=== PATIENT | male | born 1975 | race Caucasian/White ===

== ENCOUNTER 2019-02-01 08:03 | Emergency (ER) | payer BC ==
[2019-02-01] MEDS ORDERED: Albuterol/Ipratropium 3.0-0.5 MG/3 ML Neb Soln NEB ONE (08:15)
[2019-02-01] MEDS ORDERED: predniSONE 20 MG Tab PO ONE (08:22)
--- NOTE | 2019-02-01 08:22 | EDM.PDOC ---
ED HPI GENERAL MEDICAL PROBLEM - General Chief Complaint: Respiratory Problem Stated Complaint: ASTHMA ATTACK Time Seen by Provider: 02/01/19 08:09 - History of Present Illness INITIAL COMMENTS - FREE TEXT/NARRATIVE: HISTORY AND PHYSICAL: History of present illness: The patient is a 43-year-old male with a known history of asthma and uses an inhaler as needed and says he has never taken prednisone for an acute attack nor has he been admitted to the hospital for asthma and presents with complaints of asthma symptoms that seems to have worsened at 6 PM last evening. The patient says he lives in [place] but works here locally and when he is here he seems to use his inhaler more often but only as needed and no regular basis. He says that at 6:00 last night he was leaving work and he felt more short of breath but he did not have his inhaler. He says that he ran out a few weeks ago. He tells me that if he had his inhaler he probably would not be here in the ED but as he did not have his rescue inhaler and had no way of getting one he is now here with complaints of wheezing and tightness with shortness of breath. He denies any fevers chills chest pain abdominal issues sore throat and says that he is coughing but is a dry cough and nonproductive. He is not concerned about any infectious process. He does not have a spacer to use at home. Review of systems: As per history of present illness and below otherwise all systems reviewed and negative. Past medical history: As per history of present illness and as reviewed below otherwise noncontributory. Surgical history: As per history of present illness and as reviewed below otherwise noncontributory. Social history: No reported history of drug or alcohol abuse. Family history: As per history of present illness and as reviewed below otherwise noncontributory. Physical exam: General: Well-developed well-nourished man who is nontoxic and vital signs were noted by me. He is speaking clearly in the ED and he is currently on a DuoNeb on my arrival into the room as this was started by nursing prior to my arrival. HEENT: Atraumatic, normocephalic, negative for conjunctival pallor or scleral icterus, mucous membranes moist, throat clear, neck supple, nontender, trachea midline. Lungs: Clear to auscultation with some fine expiratory wheeze at the right base but no worker breathing or stridor, breath sounds equal bilaterally, chest nontender. Heart: S1S2, regular rhythm and sensory tachycardic rate on my evaluation but the patient is on a DuoNeb, no overt murmurs Abdomen: Soft, nondistended, nontender. NABS Pelvis: Deferred Genitourinary: Deferred. Rectal: Deferred. Extremities: Atraumatic, full range of motion Neurovascular unremarkable. Neuro: Awake, alert, oriented. Cranial nerves II through XII unremarkable. Cerebellum unremarkable. Motor and sensory unremarkable throughout. Exam nonfocal. Diagnostics: None Therapeutics: DuoNeb prednisone spacer and teaching After the duo neb the patient says he feels significantly improved and is comfortable with discharge home. He is asking for a refill on his inhaler and I' ve also discussed with him the need for a burst of prednisone Impression: Acute asthma attack Definitive disposition and diagnosis as appropriate pending reevaluation and review of above. Back Pain Score (Numeric/FACES): 1 - Related Data Allergies Allergy/AdvReac Type Severity Reaction Status Date / Time No Known Allergies Allergy Verified 02/01/19 08:07 Home Meds: Home Meds Albuterol Sulfate [Albuterol Sulfate Hfa] 8.5 gm IH ASDIRECTED PRN 02/01/19 [ History] Past Medical History Respiratory History: Reports: Asthma - Infectious Disease History Infectious Disease History: Reports: Chicken Pox - Past Surgical History Other Musculoskeletal Surgeries/Procedures:: ACL repair x2 Social & Family History - Tobacco Use Smoking Status *Q: Never Smoker Second Hand Smoke Exposure: No - Caffeine Use Caffeine Use: Reports: None - Recreational Drug Use Recreational Drug Use: Yes Drug Use in Last 12 Months: No ED ROS GENERAL - Review of Systems Review Of Systems: ROS reveals no pertinent complaints other than HPI. ED EXAM, GENERAL - Physical Exam Exam: See Below (see dictation) Course - Vital Signs Last Recorded V/S: Last Vital Signs Temp 36.1 C 02/01/19 08:05 Pulse 111 H 02/01/19 08:05 Resp 18 02/01/19 08:05 BP 142/87 H 02/01/19 08:05 Pulse Ox 92 L 02/01/19 08:05 - Orders/Labs/Meds Orders: Active Orders 24 hr Category Date Time Status Communication Order [RC] STAT Care 02/01/19 08:15 Ordered RT Aerosol Therapy [RC] ASDIRECTED Care 02/01/19 08:15 Ordered Meds: Medications Discontinued Medications Generic Name Dose Route Start Last Admin Trade Name Satr PRN Reason Stop Dose Admin Albuterol/Ipratropium 3 ml 02/01/19 08:15 Duoneb 3.0-0.5 Mg/3 Ml NEB 02/01/19 08:16 ONETIME ONE Departure - Departure Time of Disposition: 08:20 Disposition: Home, Self-Care 01 Condition: Good Clinical Impression: Acute asthma - Discharge Information Additional Instructions: The following information is given to patients seen in the emergency department who are being discharged to home. This information is to outline your options for follow-up care. We provide all patients seen in our emergency department with a follow-up referral. The need for follow-up, as well as the timing and circumstances, are variable depending upon the specifics of your emergency department visit. If you don't have a primary care physician on staff, we will provide you with a referral. We always advise you to contact your personal physician following an emergency department visit to inform them of the circumstance of the visit and for follow-up with them and/or the need for any referrals to a consulting specialist. The emergency department will also refer you to a specialist when appropriate. This referral assures that you have the opportunity for followup care with a specialist. All of these measure are taken in an effort to provide you with optimal care, which includes your followup. Under all circumstances we always encourage you to contact your private physician who remains a resource for coordinating your care. When calling for followup care, please make the office aware that this follow-up is from your recent emergency room visit. If for any reason you are refused follow-up, please contact the [facility] emergency department at and ask to speak to the emergency department charge nurse. [facility] Primary [facility]- Internal Medicine and Family [address] [address] Push hydration as we discussed and use your inhaler with the spacer you have been given 1-2 puffs every 6 hours for the next 24 hours and then every 6 hours as needed. It is important to do it around the clock for the first 24 hours to break the attack. Please take prednisone as prescribed. Call and follow-up with your provider back at home or one of our clinic providers for further care and evaluation and return to ER as needed and as discussed - My Orders Last 24 Hours: My Active Orders 02/01/19 08:15 Communication Order [RC] STAT RT Aerosol Therapy [RC] ASDIRECTED - Assessment/Plan Last 24 Hours: My Active Orders 02/01/19 08:15 Communication Order [RC] STAT RT Aerosol Therapy [RC] ASDIRECTED
== END 2019-02-01 08:35 | disposition home or self-care (01) ==
LOC: MW.ED 08:03
DX: J45.901 Unspecified asthma with (acute) exacerbation (principal); Z79.51 Long term (current) use of inhaled steroids
CPT/HCPCS: 99284; A9270; 99283; J7620-GY

== ENCOUNTER 2021-10-02 06:47 | Emergency (ER) | payer SELFPAY ==
[2021-10-02] MEDS ORDERED: Dicyclomine 10 MG Cap PO ONE (07:37)
[2021-10-02 08:33] LABS: BLOOD UREA NITROGEN,BUN 20 mg/dL (7.0-18.0); CARBON DIOXIDE,CO2 24.2 mmol/L (21.0-32.0); CHLORIDE,CL 99 mmol/L (98-107); GLUCOSE RANDOM 109 mg/dL (74-106); POTASSIUM,K 3.6 mmol/L (3.5-5.1); SODIUM,NA 137 mmol/L (136-148)
== END 2021-10-02 09:05 | disposition home or self-care (01) ==
LOC: MW.ED 06:47
DX: K52.9 Noninfective gastroenteritis and colitis, unspecified (principal)
CPT/HCPCS: 36415; 80053; 85025; 99284; A9270; 99283

== ENCOUNTER 2021-10-05 02:47 | Emergency (ER) | payer SELFPAY ==
[2021-10-05] MEDS ORDERED: Ketorolac 30 MG/ML SDV IM ONE (03:43)
[2021-10-05 03:48] LABS: BLOOD UREA NITROGEN,BUN 16 mg/dL (7.0-18.0); CARBON DIOXIDE,CO2 21.8 mmol/L (21.0-32.0); CHLORIDE,CL 103 mmol/L (98-107); GLUCOSE RANDOM 114 mg/dL (74-106); POTASSIUM,K 3.6 mmol/L (3.5-5.1); SODIUM,NA 137 mmol/L (136-148)
== END 2021-10-05 05:53 | disposition home or self-care (01) ==
LOC: MW.ED 02:47
DX: N23 Unspecified renal colic (principal); J45.909 Unspecified asthma, uncomplicated
CPT/HCPCS: 36415; 74176; 74176-26; 80053; 81001; 85025; 99283; 99284-25

== ENCOUNTER 2022-03-07 01:50 | Emergency (ER) | payer SELFPAY | END 2022-03-07 02:10 | LOC: MW.ED 01:50 | DX: Z02.89 Encounter for other administrative examinations (principal) | CPT/HCPCS: 99283 ==

== ENCOUNTER 2023-02-09 14:42 | Emergency (ER) | payer BC ==
[2023-02-09] MEDS ORDERED: Albuterol/Ipratropium 3.0-0.5 MG/3 ML Neb Soln ONE (14:46)
[2023-02-09] MEDS ORDERED: Albuterol/Ipratropium 3.0-0.5 MG/3 ML Neb Soln NEB ONE ×2 (14:48→15:00)
[2023-02-09] MEDS ORDERED: predniSONE 20 MG Tab PO ONE (14:49)
== END 2023-02-10 07:36 | disposition home or self-care (01) ==
LOC: MW.ED 14:42
DX: J45.901 Unspecified asthma with (acute) exacerbation (principal)
CPT/HCPCS: 71045; 99285; A9270; 99283; J7620-GY